=== PATIENT | female | born 1955 | race Caucasian/White ===

== ENCOUNTER 2022-04-13 21:15 | Outpatient (CLI) | payer MEDICARE, BC, SELFPAY | END 2022-04-13 21:16 | disposition home or self-care (01) | LOC: AMB 04-24 21:22 | PROVIDERS: PCP Family Medicine; Visit Provider Emergency Medicine Emergency Medical Services | DX: R07.89 Other chest pain (principal) | CPT/HCPCS: A0425; A0427 ==

== ENCOUNTER 2022-04-13 21:43 | Emergency (ER) | payer MEDICARE, BC, SELFPAY ==
[2022-04-13 21:50] VITALS: BP 112/72; PULSE 68; RESP 16; TEMP 36.4; O2SAT 99; BMI 24.1
[2022-04-13 22:05] LABS: Basophils Absolute Auto 0.04 K/uL (0.00-0.30); Basophils Percent Auto 0.5 % (0.0-3.0); Eosinophils Absolute Auto 0.07 K/uL (0.00-0.50); Eosinophils Percent Auto 0.8 % (0.0-7.0); Hematocrit 36.4 % (33.0-51.0); Lymphocytes Absolute Auto 3.36 K/uL (0.90-2.90); Lymphocytes Percent Auto 39.4 % (20-44); Mean Corpuscular HGB Conc 33 gm/dL (32-36); Mean Corpuscular Hemoglobin 31 pg (26-34); Mean Corpuscular Volume 94 fL (80-100); Monocytes Percent Auto 7.4 % (0.0-11.0); Neutrophils Absolute Auto 4.42 K/uL (1.7-7.0); Neutrophils Percent Auto 51.9 % (42.0-72.0); Platelet Count* 284 K/uL (140-440); Red Blood Count 3.88 m/uL (4.00-5.20); White Blood Count* 8.52 K/uL (4.50-11.00)
[2022-04-13 22:08] LABS: Slide Review Reflex No
--- NOTE | 2022-04-13 22:12 | ED.CHESTPAIN ---
HPI - Chest Pain General Chief Complaint: Chest Pain Stated Complaint: Chest Pain Time Seen by Provider: 04/13/22 21:55 History of Present Illness HPI narrative: This 67-year-old female comes in reporting chest pain radiating up toward her neck. This started about an hour prior to arrival. She was having a phone conversation at the time this occurred and there was no particular strenuous activity related to this. She does ambulate 3 or 4 miles every day without any symptoms. She did have some symptoms accompanying the chest pain tonight including nausea, some lightheadedness, some diaphoresis. She is treating blood pressure and cholesterol and has a family history of heart disease. Her vital signs upon arrival are normal. She did take 325 mg aspirin prior to arrival. Related Data Home Medications Medication Instructions Recorded Confirmed amlodipine 10 mg tablet 10 mg PO DAILY 04/13/22 04/13/22 aspirin 81 mg capsule 81 mg PO DAILY 04/13/22 04/13/22 cholecalciferol (vitamin D3) 25 1,000 unit PO DAILY 04/13/22 04/13/22 mcg (1,000 unit) capsule lisinopril 40 mg tablet 40 mg PO DAILY 04/13/22 04/13/22 oxcarbazepine 150 mg tablet 150 mg PO BID 04/13/22 04/13/22 rosuvastatin 5 mg tablet 5 mg PO HS 04/13/22 04/13/22 valacyclovir 500 mg tablet 500 mg PO DAILY 04/13/22 04/13/22 Allergies Allergy/AdvReac Type Severity Reaction Status Date / Time ampicillin Allergy Intermediate Rash Verified 04/13/22 21:53 Review of Systems Status of ROS Reports: 10 or more systems reviewed and unremarkable except as noted in History and below Narrative Constitutional: No fevers, no weight gain or loss. Eyes: No discharge. No vision changes. HENT: No congestion, no sore throat, no ear pain. Cardiovascular: No palpitations. Chest pain as described above. Respiratory: No shortness of breath, no wheezes, no cough. Gastrointestinal: No vomiting, no diarrhea. She did have some nausea. The pain seems to start in the upper epigastric region and then radiates up toward her chest and her neck. Genitourinary: No dysuria, no hematuria. Musculoskeletal: Normal range of motion. Skin: No rashes, no pruritis. Neurological: No dizziness, weakness, sensory change, speech change. Endo/Heme/Allergies: No bruising or bleeding. No polydipsia. Pysch: no suicidality, no anxiety, no insomnia. All other systems reviewed and are negative. [facility] Medical History (Updated 04/14/22 @ 00:26 by Dontrell Wilburn MD) Herpes labialis History of colon polyps HTN (hypertension) Seizure disorder Surgical History (Updated 04/13/22 @ 22:04 by Andre Lyn RN) No significant past surgical history Social History Smoking Status: Never smoker How often do you have a drink containing alcohol: never How often do you have six or more drinks on one occasion: Never AUDIT-C Alcohol total score: 0 Non-prescribed substance use: denies use Exam Narrative Exam Narrative: Constitutional: Well-developed, well-nourished. HEENT: Normocephalic, atraumatic. Neck: Normal range of motion. Nontender. Supple. Heart: Regular. No murmurs. Normal rate. Intact distal pulses. Lungs: Clear to auscultation. No chest discomfort. No wheezes, rhonchi, or rales. Abdomen: Normal bowel sounds. Nontender. No rebound tenderness. Genitalia: Deferred. Back: No midline tenderness. Normal range of motion. Extremities: Normal range of motion. No injury. Skin: Intact. No rash. Warm. No erythema or pallor. Neurologic: No altered sensation. No weakness. Alert and oriented. Psychiatric: No suicidality. No anxiety or depression. No insomnia. Nursing notes and vitals signs are reviewed. Const Vital Signs, click to edit/add: Vital Signs - 24 hr 04/13/22 21:50 Temperature 97.6 F Pulse Rate [Right Pulse Oximeter] 68 Respiratory Rate 16 Blood Pressure [Right Upper Arm] 112/72 Pulse Oximetry 99 Course Vital Signs Vital signs: Initial Vital Signs Temperature 97.6 F 04/13/22 21:50 Temperature Source Temporal Artery Scan 04/13/22 21:50 Pulse Rate 68 04/13/22 21:50 Pulse Rhythm 04/13/22 21:50 Respiratory Rate 16 04/13/22 21:50 Blood Pressure 112/72 04/13/22 21:50 Blood Pressure Mean 85 04/13/22 21:50 Blood Pressure Position Supine 04/13/22 21:50 Pulse Oximetry 99 04/13/22 21:50 Oxygen Delivery Method 04/13/22 21:50 Vital Signs Temperature 97.6 F 04/13/22 21:50 Pulse Rate 68 04/13/22 21:50 Respiratory Rate 16 04/13/22 21:50 Blood Pressure 112/72 04/13/22 21:50 Pulse Oximetry 99 04/13/22 21:50 Temperature 97.6 F 04/13/22 21:50 Pulse Rate 68 04/13/22 21:50 Respiratory Rate 16 04/13/22 21:50 Blood Pressure 112/72 04/13/22 21:50 Pulse Oximetry 99 04/13/22 21:50 MDM - Chest Pain MDM Narrative Medical decision making narrative: This patient comes in reporting upper epigastric abdominal pain radiating up into her chest and her neck. Initial EKG and patient monitor findings are consistently reassuring. Additionally her initial troponin is negative. A repeat troponin is pending at the end of my shift. The patient did take 325 mg of aspirin prior to arrival. She does have some episodes of nausea and discomfort here in there. She did receive an oral dose of Zofran. She also received a GI cocktail which did not bring any relief to her symptoms. It does not seem that this patient's symptoms are coming from coronary artery disease. She does walk for exercise is 3-4 miles every day without any symptoms. If repeat troponin is negative she should be okay to discharge home and is encouraged to follow-up with her primary physician. She states that she has 2 sons that are nurses involved in coronary care units and will be able to follow-up with cardiology as needed. Lab Data Labs: Lab Results 04/13/22 04/13/22 Range/Units 21:59 21:59 WBC 8.52 (4.50-11.00) K/uL RBC 3.88 L (4.00-5.20) m/uL Hgb 12.0 (12.0-16.0) gm/dL Hct 36.4 (33.0-51.0) % MCV 94 (80-100) fL MCH 31 (26-34) pg MCHC 33 (32-36) gm/dL RDW Coeff of Lavinia 13.0 (11.5-15.5) % Plt Count 284 (140-440) K/uL Neut % (Auto) 51.9 (42.0-72.0) % Lymph % (Auto) 39.4 (20-44) % [place] % (Auto) 7.4 (0.0-11.0) % Eos % (Auto) 0.8 (0.0-7.0) % Baso % (Auto) 0.5 (0.0-3.0) % Neut # (Auto) 4.42 (1.7-7.0) K/uL Lymph # (Auto) 3.36 H (0.90-2.90) K/uL [place] # (Auto) 0.60 (0.00-0.90) K/UL Eos # (Auto) 0.07 (0.00-0.50) K/uL Baso # (Auto) 0.04 (0.00-0.30) K/uL Abs Immat Gran (auto) 0.00 (0.00-0.30) K/uL Sodium 139 (135-149) mmol/L Potassium 3.1 L (3.6-5.1) mmol/L Chloride 108 (96-114) mmol/L Carbon Dioxide 26 (20-32) mmol/L BUN 22 (7-30) mg/dL Creatinine 0.7 (0.5-1.5) mg/dL Estimated Creat Clear 50.47 Estimated GFR 96 ml/min Glucose 132 H (60-115) mg/dL Calcium 8.5 (8.4-10.6) mg/dL Troponin I < 0.01 L (0.01-0.04) ng/mL ECG Data Interpretation: Normal sinus rhythm. Rate 63 beats per minute. There are no specific ST or T-wave abnormalities. Discharge Plan Discharge Clinical Impression: Atypical chest pain Condition: Stable Prescriptions: No Action amlodipine 10 mg tablet 10 mg PO DAILY 0RF cholecalciferol (vitamin D3) 25 mcg (1,000 unit) capsule 1,000 unit PO DAILY 0RF Label Comments: Take 1 capsule by mouth once daily. lisinopril 40 mg tablet 40 mg PO DAILY 0RF oxcarbazepine 150 mg tablet 150 mg PO BID 0RF Label Comments: take 1 tablet by mouth in the morning and 2 tablets by mouth in the evening rosuvastatin 5 mg tablet 5 mg PO HS 0RF valacyclovir 500 mg tablet 500 mg PO DAILY 0RF Label Comments: Take 1 tablet by mouth 2 times daily. aspirin 81 mg capsule 81 mg PO DAILY 0RF Follow Up/Referrals: Sophie Louise MD [Primary Care Provider] -
[2022-04-13 22:24] LABS: Chloride* 108 mmol/L (96-114)
[2022-04-13 22:25] LABS: Potassium* 3.1 mmol/L (3.6-5.1); Sodium* 139 mmol/L (135-149)
[2022-04-13 22:27] LABS: Creatinine* 0.7 mg/dL (0.5-1.5); Est. Creatinine Clearance* 50.47; Estimated Glomerular Filt Rate 96 ml/min
[2022-04-13 22:28] LABS: Blood Urea Nitrogen* 22 mg/dL (7-30); Calcium* 8.5 mg/dL (8.4-10.6); Carbon Dioxide* 26 mmol/L (20-32); Glucose* 132 mg/dL (60-115)
[2022-04-13 23:00] VITALS: BP 107/68; PULSE 68; RESP 16; O2SAT 98
--- NOTE | 2022-04-13 23:18 | ED.NURSE ---
pt. resting in bed. denies chest pain at this time. normal sinus on cardiac rehabilitation program director. vitals stable. w/u pending.
[2022-04-13 23:23] LABS: Troponin I* < 0.01 ng/mL (0.01-0.04)
[2022-04-13] MEDS: ONDANSETRON ODT 4 MG TAB PO (23:27)
[2022-04-13 23:30] VITALS: BP 100/68; PULSE 71; RESP 16; O2SAT 98
[2022-04-13] MEDS: GI COCKTAIL (VISC LIDO/ANTACID) 30 ML PO (23:59)
[2022-04-14] VITALS: BP 115/83; PULSE 70; RESP 16; O2SAT 98
[2022-04-14 00:30] VITALS: BP 113/77; PULSE 71; RESP 16; O2SAT 98
[2022-04-14 01:00] VITALS: BP 117/77; PULSE 76; RESP 16; O2SAT 98
[2022-04-14 01:04] LABS: Troponin I* < 0.01 ng/mL (0.01-0.04)
[2022-04-14 01:23] VITALS: BP 119/74; PULSE 69; RESP 16
== END 2022-04-14 01:24 | disposition home or self-care (01) ==
PROVIDERS: Emergency Provider Emergency Medicine Emergency Medical Services; PCP Family Medicine
DX: R07.9 Chest pain, unspecified (principal)
CPT/HCPCS: 36415; 71045; 71260; 71270; 74177; 80048; 80053; 82803; 83605; 83690; 83880; 84484; 85025; 85379; 93005; 96365; 96375; 99284; 99285; A9270; J1885; Q9967

== ENCOUNTER 2022-04-14 09:36 | Emergency (ER) | payer MEDICARE, BC, SELFPAY ==
[2022-04-14] VITALS (13 sets, daily range): BP systolic 103–122; BP diastolic 51–86; PULSE 70–93; RESP 18; TEMP 36.4; O2SAT 96–99; BMI 24.5
--- NOTE | 2022-04-14 09:50 | ED.NURSE ---
ekg done, shows SR, pt placed on heart monitor
--- NOTE | 2022-04-14 10:02 | ED_ITS ---
HPI - Chest Pain General Time Seen by Provider: 10:02 Date Seen: 04/14/22 Chief Complaint: Chest Pain Stated Complaint: sharp chest pain Time Seen by Provider: 04/14/22 09:49 Source: patient, family ( is present), RN notes reviewed and old records reviewed (Reviewed ED visit notes from last night.) Mode of arrival: ambulatory Limitations: no limitations History of Present Illness HPI narrative: Patient returns to the ER this morning with return of epigastric pain that radiates up into the chest and into her neck and both sides of her jaw. She has even feeling it into her ears. She did sleep well last night after returning home from the ER. She had negative troponins here last night in did does find sleeping last night. The pain never went completely away but was less severe. She got up this morning just was not feeling very good, cannot really specify beyond that. She went to the bathroom and then after that when she was up walking around she started having pain. There is a pleuritic component that deeper breathing does increase the pain. She has had no recent vomiting, no nausea with this. She was sick with COVID about a month ago she believes. No current fevers chills, no current cough. , no current GI symptoms with this. MD complaint: chest pain Onset (ago): day(s) Timing of current episode: episodic (The severe pain seems to be episodic, last severe episode prior to ED visit last night) and constant (Underlying constant mild pain) Prior episodes: No Onset: during rest and during exertion Pain location: substernal and epigastric Pain radiation: neck and jaw/teeth Severity: severe Quality: sharp Relieving factors: nothing Exacerbating factors: exertion (Seem to worsen with walking around this morning) Context: recent illness (Had COVID about a month ago) Related Data On Oral Contraceptives: No Home Medications Medication Instructions Recorded Confirmed amlodipine 10 mg tablet 10 mg PO DAILY 04/13/22 04/13/22 aspirin 81 mg capsule 81 mg PO DAILY 04/13/22 04/13/22 cholecalciferol (vitamin D3) 25 1,000 unit PO DAILY 04/13/22 04/13/22 mcg (1,000 unit) capsule lisinopril 40 mg tablet 40 mg PO DAILY 04/13/22 04/13/22 oxcarbazepine 150 mg tablet 150 mg PO BID 04/13/22 04/13/22 rosuvastatin 5 mg tablet 5 mg PO HS 04/13/22 04/13/22 valacyclovir 500 mg tablet 500 mg PO DAILY 04/13/22 04/13/22 Allergies Allergy/AdvReac Type Severity Reaction Status Date / Time ampicillin Allergy Intermediate Rash Verified 04/13/22 21:53 Review of Systems Status of ROS Reports: 10 or more systems reviewed and unremarkable except as noted in History and below [facility] Medical History (Updated 04/14/22 @ 00:26 by Dontrell Wilburn MD) Herpes labialis History of colon polyps HTN (hypertension) Seizure disorder Surgical History (Updated 04/13/22 @ 22:04 by Andre Lyn RN) No significant past surgical history Social History Smoking Status: Never smoker How often do you have a drink containing alcohol: never How often do you have six or more drinks on one occasion: Never AUDIT-C Alcohol total score: 0 Non-prescribed substance use: denies use Exam Const Vital Signs, click to edit/add: Vital Signs - 24 hr 04/14/22 09:44 04/14/22 10:30 04/14/22 11:00 Temperature 97.5 F L Pulse Rate [Left Pulse Oximeter] 77 77 75 Respiratory Rate 18 18 18 Blood Pressure [Left Upper Arm] 118/62 112/53 L 107/57 L Pulse Oximetry 97 98 96 04/14/22 11:30 04/14/22 12:00 04/14/22 12:30 Temperature Pulse Rate [Left Pulse Oximeter] 79 73 73 Respiratory Rate 18 18 18 Blood Pressure [Left Upper Arm] 104/86 104/55 L 106/61 Pulse Oximetry 96 97 97 04/14/22 13:00 04/14/22 13:30 04/14/22 14:00 Temperature Pulse Rate [Left Pulse Oximeter] 70 71 93 Respiratory Rate 18 18 18 Blood Pressure [Left Upper Arm] 109/56 L 103/51 L 115/65 Pulse Oximetry 96 99 98 04/14/22 14:24 Temperature Pulse Rate [Left Pulse Oximeter] 93 Respiratory Rate 18 Blood Pressure [Left Upper Arm] 115/65 Pulse Oximetry 98 Documenting provider has reviewed patient's vital signs: yes Common normals: no apparent distress, oriented x3, no limitations, healthy appearing and alert General appearance: cooperative and other (Seems mildly uncomfortable at times) Orientation/consciousness: Yes awake HENMT Common normals: normocephalic, head/scalp atraumatic, hearing grossly normal bilaterally, external ears normal, TM's normal bilaterally, external nose normal, moist oral mucous membranes, oropharynx normal and dentition normal Head and scalp: normocephalic and atraumatic Nose: external nose normal External ear: external ears normal Tympanic membrane: TM's normal bilaterally Eye Common normals: PERRL, EOMs intact bilaterally, conjunctivae normal and no scleral icterus Conjunctiva: conjunctiva(e) normal Pupil: PERRL Neck & C-Spine Common normals: full ROM, no lymphadenopathy, supple, no meningeal signs, no JVD and thyroid normal Thyroid: thyroid normal Chest Common normals: inspection of chest normal Other: Feels some increased pain when I palpate the costochondral junctions and the lower sternum, epigastric area Resp Common normals: normal respiratory effort, no retractions, no use of accessory muscles and clear to auscultation bilaterally Effort & inspection: able to speak in complete sentences Auscultation: clear to auscultation bilaterally Cardio Common normals: no JVD, regular rate, regular rhythm, S1 normal heart sound, S2 normal heart sound, no gallops, no clicks and no murmurs Rate: regular rate Rhythm: regular rhythm Heart sounds: S1 normal and S2 normal GI Common normals: Normal to inspection, nondistended, normoactive bowel sounds present, soft to palpation, non-tender (With exception of the epigastric area which causes increased chest symptoms), no hepatosplenomegaly and no masses Palpation: soft and no hepatosplenomegaly Extremity Common normals: normal to inspection, full ROM, normal capillary refill, no joint enlargement, no clubbing, cyanosis or edema, no calf tenderness and no pedal edema Neuro Common normals: oriented x3 Sensorium/orientation: awake and alert Meningeal signs: no meningeal signs Skin Common normals: no rashes or lesions noted, no wounds and skin turgor normal General skin exam: no rashes or lesions noted and turgor normal Course Course Hospital Course: We will reconsider etiologies including thromboembolic/dissection. Will relook at her cardiac enzymes. This certainly seems pleuritic. They understand we may need to do CT imaging. Will do full complement of labs CT, have her on cardiac monitoring and pulse oximetry. Need to look back and see which she was given yesterday and decide on pain management for her. Review of her visit last night reveals that she receives Zofran and a GI cocktail. Will attempt Toradol IV and see if that helps alleviate her symptoms. Reevaluation(s) Reevaluation #1: Reviewed with patient that her EKG and troponin are looking normal, no evidence that these symptoms are cardiac. Her D-dimer unfortunately is quite elevated and do think we need to proceed with CT imaging of the chest with PE protocol. With her blood pressure being normal, it makes dissection much less likely. The Toradol has helped werner some of her symptoms, thus certainly pleurisy could be playing a component here. Time: 11:12 Reevaluation #2: Received a phone call from the radiologist at 1:58 p.m.. There was a ascending thoracic aorta aneurysm per the radiologist. She recommended transfer to an advanced institution and did not recommend repeating in the study for dissection/aneurysm. I a spoke with the patient and her , they preferred [facility] for [place]. I did talk to Kim MEEK in the transfer center at 2:03 p.m.. She is going to look at all of our information that we are faxing her, await our images that we are transferring to their facility and contact us back. At this time patient is hemodynamically stable with a blood pressure 115/65, pulse of 90, 97% on room air. Her pain is not severe. Her blood pressure is low enough that I a.m. holding off starting any medications and tell I talked to a specialist somewhere. Her pulse may have room to be brought down a bit but there is not significant Gunnar her blood pressure. She has not become hypotensive. Review of her blood pressures from last night showed that they were similar. Time: 14:00 Reevaluation #3: Have spoken with Dr. Stewart from [facility] and they will be accepting this patient. He did want an esmolol drip started with titration of the pulse to be below 70 and systolic blood pressure below 110. Patient right now has a systolic blood pressure 113, pulse in the 80s. Pharmacy is working on esmolol drip. The plan is for her to transfer via helicopter to [place] where she will undergo surgery. We will be getting a COVID test on her for them. Time: 15:56 Vital Signs Vital signs: Initial Vital Signs Temperature 97.5 F L 04/14/22 09:44 Temperature Source Temporal Artery Scan 04/14/22 09:44 Pulse Rate 77 04/14/22 09:44 Respiratory Rate 18 04/14/22 09:44 Blood Pressure 118/62 04/14/22 09:44 Blood Pressure Mean 80 04/14/22 09:44 Pulse Oximetry 97 04/14/22 09:44 Oxygen Delivery Method 04/14/22 09:44 Vital Signs Temperature 97.5 F L 04/14/22 09:44 Pulse Rate 77 04/14/22 09:44 Respiratory Rate 18 04/14/22 09:44 Blood Pressure 118/62 04/14/22 09:44 Pulse Oximetry 97 04/14/22 09:44 Temperature 97.5 F L 04/14/22 09:44 Pulse Rate 93 04/14/22 14:24 Respiratory Rate 18 04/14/22 14:24 Blood Pressure 115/65 04/14/22 14:24 Pulse Oximetry 98 04/14/22 14:24 MDM - Chest Pain Lab Data Attestation: I reviewed the patient's lab results. Labs: Lab Results 04/14/22 04/14/22 04/14/22 Range/Units 10:25 10:25 10:25 WBC 14.76 H (4.50-11.00) K/uL RBC 4.02 (4.00-5.20) m/uL Hgb 12.5 (12.0-16.0) gm/dL Hct 38.2 (33.0-51.0) % MCV 95 (80-100) fL MCH 31 (26-34) pg MCHC 33 (32-36) gm/dL RDW Coeff of Lavinia 13.3 (11.5-15.5) % Plt Count 280 (140-440) K/uL Neut % (Auto) 78.2 H (42.0-72.0) % Lymph % (Auto) 13.4 L (20-44) % Dent % (Auto) 8.0 (0.0-11.0) % Eos % (Auto) 0.0 (0.0-7.0) % Baso % (Auto) 0.1 (0.0-3.0) % Neut # (Auto) 11.50 H (1.7-7.0) K/uL Lymph # (Auto) 2.00 (0.90-2.90) K/uL Dent # (Auto) 1.20 H (0.00-0.90) K/UL Eos # (Auto) 0.00 (0.00-0.50) K/uL Baso # (Auto) 0.00 (0.00-0.30) K/uL Abs Immat Gran (auto) 0.05 (0.00-0.30) K/uL D-Dimer Quant (PE/DVT) 2.04 H (0.00-0.50) ug/ml VBG pH (7.32-7.43) VBG pCO2 (40-50) mmHG VBG pO2 (25-47) mmHG VBG HCO3 (21-28) mmol/L Sodium 142 (135-149) mmol/L Potassium 3.9 (3.6-5.1) mmol/L Chloride 107 (96-114) mmol/L Carbon Dioxide 28 (20-32) mmol/L BUN 26 (7-30) mg/dL Creatinine 0.7 (0.5-1.5) mg/dL Estimated Creat Clear 48.43 Estimated GFR 96 ml/min Glucose 142 H (60-115) mg/dL Lactate (0.5-1.9) mmol/L Calcium 9.3 (8.4-10.6) mg/dL Total Bilirubin 0.3 (0.1-1.5) mg/dL AST 33 (12-35) U/L ALT 31 (4-35) U/L Alkaline Phosphatase 57 (40-150) U/L Troponin I < 0.01 L (0.01-0.04) ng/mL NT-Pro-B Natriuret Pep 168 H (0-125) PG/mL Total Protein 6.8 (6.0-8.3) g/dL Albumin 4.3 (3.3-5.0) g/dL Lipase 72 (23-300) U/L 04/14/22 Range/Units 10:25 WBC (4.50-11.00) K/uL RBC (4.00-5.20) m/uL Hgb (12.0-16.0) gm/dL Hct (33.0-51.0) % MCV (80-100) fL MCH (26-34) pg MCHC (32-36) gm/dL RDW Coeff of Lavinia (11.5-15.5) % Plt Count (140-440) K/uL Neut % (Auto) (42.0-72.0) % Lymph % (Auto) (20-44) % Dent % (Auto) (0.0-11.0) % Eos % (Auto) (0.0-7.0) % Baso % (Auto) (0.0-3.0) % Neut # (Auto) (1.7-7.0) K/uL Lymph # (Auto) (0.90-2.90) K/uL Dent # (Auto) (0.00-0.90) K/UL Eos # (Auto) (0.00-0.50) K/uL Baso # (Auto) (0.00-0.30) K/uL Abs Immat Gran (auto) (0.00-0.30) K/uL D-Dimer Quant (PE/DVT) (0.00-0.50) ug/ml VBG pH 7.368 (7.32-7.43) VBG pCO2 49 (40-50) mmHG VBG pO2 35.7 (25-47) mmHG VBG HCO3 28 (21-28) mmol/L Sodium (135-149) mmol/L Potassium (3.6-5.1) mmol/L Chloride (96-114) mmol/L Carbon Dioxide (20-32) mmol/L BUN (7-30) mg/dL Creatinine (0.5-1.5) mg/dL Estimated Creat Clear Estimated GFR ml/min Glucose (60-115) mg/dL Lactate 1.7 (0.5-1.9) mmol/L Calcium (8.4-10.6) mg/dL Total Bilirubin (0.1-1.5) mg/dL AST (12-35) U/L ALT (4-35) U/L Alkaline Phosphatase (40-150) U/L Troponin I (0.01-0.04) ng/mL NT-Pro-B Natriuret Pep (0-125) PG/mL Total Protein (6.0-8.3) g/dL Albumin (3.3-5.0) g/dL Lipase (23-300) U/L Imaging Data Chest x-ray: Attestation: I have reviewed the pertinent imaging results. Radiologist's impression: Patient: [facility] [place] Facility:?[facility] Patient ID:?[id number] Site Patient ID:?[id number]. Site :?[id number] Study:?XRay Chest Portable 1 View-04/14/2022 11:04:46 AM Ordering Physician:?Luis F Freire Final Report: INDICATION: Chest pain TECHNIQUE: Chest 1 view COMPARISON: None FINDINGS: Cardiovascular and mediastinum: Cardiac silhouette is enlarged. There is tortuosity of the great vessels. Lungs and pleural spaces: Lungs are clear. No sign of infiltrate or mass. No sign of pleural effusion. No pneumothorax. Bones and soft tissues: Degenerative changes. IMPRESSION: No acute findings. Dictated by Willard Vegas MD @ 04/14/2022 11:29:[address] scan - chest: Attestation: I have reviewed the pertinent imaging results. Radiologist's impression: Patient: [facility] Facility:?[facility] Patient ID:?[id number] Site Patient ID:?[id number]. Site :?[id number] Study:?CT Chest Angio 95cc [id number] PE protocol-04/14/2022 11:57:35 AM Ordering Physician:?Luis F Freire Final Report: INDICATION: Sharp chest pain. COMPARISON: Chest radiograph 04/14/2022. TECHNIQUE: CT of the chest with 95 cc of Isovue 370 IV contrast. Coronal and sagittal reconstructions. 3D post processing was performed. FINDINGS: Heart size upper limits of normal. The ascending thoracic aorta is dilated measuring 4.7 x 4.8 cm AP by TR. Contrast bolus timing is not optimal for evaluation of the aorta, however there is a clear aortic dissection beginning at the aortic root extending through the ascending thoracic aorta. The remainder of the aorta and great vessels are not well opacified. There is high-density fluid in the mediastinum surrounding the aorta suspicious for rupture. Normal caliber central pulmonary arteries. Negative for acute pulmonary embolism. Tiny pericardial effusion. No thoracic lymphadenopathy. The thyroid gland is not well seen. No focal consolidation, pleural effusion, or pneumothorax. Minimal biapical pleural scarring and bibasilar atelectasis. Calcified granuloma in the lingula. No other pulmonary nodules identified. No central endobronchial lesion or bronchial wall thickening. The visualized upper abdomen is unremarkable. The bones are within normal limits. IMPRESSION: 1. Moises type A aortic dissection beginning at the aortic root extending through the ascending thoracic aorta. The remainder of the aorta and great vessels are not well opacified which limits evaluation of the extent of the dissection. High-density fluid in the mediastinum suspicious for rupture. Recommend urgent vascular/surgical consult. 2. Negative for acute pulmonary embolism. The lungs are clear. 3. Findings discussed with Mouna Kerns at 2:00 p.m. on 04/14/2022. Please note that all CT scans at this facility use dose modulation, iterative reconstruction, and/or weight-based dosing when appropriate to reduce radiation dose to as low as reasonably achievable. Dictated by Katherine Ferrer MD @ 04/14/2022 2:07:06 PM (Electronic Signature) ECG Data Attestation: I personally reviewed and interpreted this ECG as follows: (Sinus rhythm, 77 beats per minute. No acute pathology on this EKG.) ECG interpretation date: 04/14/22 ECG interpretation time: 10:11 Prior ECG tracings: available for review Critical Care Time Critical Care Time Critical Care Time: No Discharge Plan Discharge Prescriptions: No Action amlodipine 10 mg tablet 10 mg PO DAILY 0RF cholecalciferol (vitamin D3) 25 mcg (1,000 unit) capsule 1,000 unit PO DAILY 0RF Label Comments: Take 1 capsule by mouth once daily. lisinopril 40 mg tablet 40 mg PO DAILY 0RF oxcarbazepine 150 mg tablet 150 mg PO BID 0RF Label Comments: take 1 tablet by mouth in the morning and 2 tablets by mouth in the evening rosuvastatin 5 mg tablet 5 mg PO HS 0RF valacyclovir 500 mg tablet 500 mg PO DAILY 0RF Label Comments: Take 1 tablet by mouth 2 times daily. aspirin 81 mg capsule 81 mg PO DAILY 0RF Follow Up/Referrals: Sophie Louise MD [Primary Care Provider] -
--- NOTE | 2022-04-14 10:13 | CRLHL7_ITS ---
For Patients: As a result of the Cures Act, medical imaging exams and procedure reports are released immediately into your electronic medical record. You may view this report before your referring provider. If you have questions, please contact your health care provider. INDICATION: Chest pain TECHNIQUE: Chest 1 view COMPARISON: None FINDINGS: Cardiovascular and mediastinum: Cardiac silhouette is enlarged. There is tortuosity of the great vessels. Lungs and pleural spaces: Lungs are clear. No sign of infiltrate or mass. No sign of pleural effusion. No pneumothorax. Bones and soft tissues: Degenerative changes. IMPRESSION: No acute findings. Dictated by Willard Vegas MD @ 04/14/2022 11:29:11 AM (Electronically Signed)
[2022-04-14 10:29] LABS: HCO3 VBG 28 mmol/L (21-28); Lactate* 1.7 mmol/L (0.5-1.9); PCO2 VBG 49 mmHG (40-50); PO2 VBG 35.7 mmHG (25-47); pH VBG 7.368 (7.32-7.43)
[2022-04-14] MEDS: KETOROLAC 15 MG/ML inj IVP (10:44)
[2022-04-14 10:46] LABS: Albumin* 4.3 g/dL (3.3-5.0); Chloride* 107 mmol/L (96-114)
[2022-04-14 10:47] LABS: Potassium* 3.9 mmol/L (3.6-5.1); Sodium* 142 mmol/L (135-149)
[2022-04-14 10:49] LABS: Bilirubin Total* 0.3 mg/dL (0.1-1.5); Creatinine* 0.7 mg/dL (0.5-1.5); Est. Creatinine Clearance* 48.43; Estimated Glomerular Filt Rate 96 ml/min
[2022-04-14 10:50] LABS: Alanine Aminotransferase* 31 U/L (4-35); Alkaline Phosphatase* 57 U/L (40-150); Aspartate Amino Transferase* 33 U/L (12-35); Blood Urea Nitrogen* 26 mg/dL (7-30); Calcium* 9.3 mg/dL (8.4-10.6); Carbon Dioxide* 28 mmol/L (20-32); Glucose* 142 mg/dL (60-115); Lipase* 72 U/L (23-300); Total Protein* 6.8 g/dL (6.0-8.3)
[2022-04-14 10:51] LABS: D Dimer Quantitative* 2.04 ug/ml (0.00-0.50)
[2022-04-14 10:54] LABS: Basophils Percent Auto 0.1 % (0.0-3.0); Hematocrit 38.2 % (33.0-51.0); Hemoglobin* 12.5 gm/dL (12.0-16.0); Immature Granulocytes Abs Auto 0.05 K/uL (0.00-0.30); Lymphocytes Percent Auto 13.4 % (20-44); Mean Corpuscular HGB Conc 33 gm/dL (32-36); Mean Corpuscular Hemoglobin 31 pg (26-34); Mean Corpuscular Volume 95 fL (80-100); Neutrophils Percent Auto 78.2 % (42.0-72.0); Platelet Count* 280 K/uL (140-440); RDW Coefficient of Variation % 13.3 % (11.5-15.5); Red Blood Count 4.02 m/uL (4.00-5.20); White Blood Count* 14.76 K/uL (4.50-11.00)
[2022-04-14 10:58] LABS: NT Pro B Type NatriureticPept* 168 PG/mL (0-125)
[2022-04-14 11:02] LABS: Troponin I* < 0.01 ng/mL (0.01-0.04)
[2022-04-14 11:03] LABS: Slide Review Reflex No
--- NOTE | 2022-04-14 11:12 | CRLHL7_ITS ---
For Patients: As a result of the Century Cures Act, medical imaging exams and procedure reports are released immediately into your electronic medical record. You may view this report before your referring provider. If you have questions, please contact your health care provider. INDICATION: Sharp chest pain. COMPARISON: Chest radiograph 04/14/2022. TECHNIQUE: CT of the chest with 95 cc of Isovue 370 IV contrast. Coronal and sagittal reconstructions. 3D post processing was performed. FINDINGS: Heart size upper limits of normal. The ascending thoracic aorta is dilated measuring 4.7 x 4.8 cm AP by TR. Contrast bolus timing is not optimal for evaluation of the aorta, however there is a clear aortic dissection beginning at the aortic root extending through the ascending thoracic aorta. The remainder of the aorta and great vessels are not well opacified. There is high-density fluid in the mediastinum surrounding the aorta suspicious for rupture. Normal caliber central pulmonary arteries. Negative for acute pulmonary embolism. Tiny pericardial effusion. No thoracic lymphadenopathy. The thyroid gland is not well seen. No focal consolidation, pleural effusion, or pneumothorax. Minimal biapical pleural scarring and bibasilar atelectasis. Calcified granuloma in the lingula. No other pulmonary nodules identified. No central endobronchial lesion or bronchial wall thickening. The visualized upper abdomen is unremarkable. The bones are within normal limits. IMPRESSION: 1. [place] type A aortic dissection beginning at the aortic root extending through the ascending thoracic aorta. The remainder of the aorta and great vessels are not well opacified which limits evaluation of the extent of the dissection. High-density fluid in the mediastinum suspicious for rupture. Recommend urgent vascular/surgical consult. 2. Negative for acute pulmonary embolism. The lungs are clear. 3. Findings discussed with Mouna Kerns at 2:00 p.m. on 04/14/2022. Please note that all CT scans at this facility use dose modulation, iterative reconstruction, and/or weight-based dosing when appropriate to reduce radiation dose to as low as reasonably achievable. Dictated by Katherine Ferrer MD @ 04/14/2022 2:07:06 PM (Electronically Signed)
--- NOTE | 2022-04-14 16:07 | CRLHL7_ITS ---
For Patients: As a result of the 21st Century Cures Act, medical imaging exams and procedure reports are released immediately into your electronic medical record. You may view this report before your referring provider. If you have questions, please contact your health care provider. INDICATION: Chest pain. TECHNIQUE: CT chest without contrast and CT chest, abdomen and pelvis acquired with 100 cc Omnipaque 350 IV contrast, dissection protocol. COMPARISON: CT angiogram of the chest PE protocol from same day.. FINDINGS: CHEST: Cardiovascular structures: The unenhanced images demonstrate high-density fluid within the mediastinum and surrounding the anterior margin of the aorta most consistent with hemorrhage. On the angiographic images, dissection flap is identified originating from the aortic root extending into the ascending aorta at. Cardiac motion artifact mildly limits evaluation. No definite site of leak or rupture is identified, however given high-density fluid within the mediastinum there is most likely an occult leak or rupture. No extension of the dissection flap into the arch vessels is identified. No dissection flap extension into the descending thoracic aorta or abdominal aorta or beyond. Heart size is normal. Mediastinum and margie: Again, there is high-density material within the mediastinum most suspicious for hemorrhage from leak or rupture, similar to the recent PE protocol CT of the chest. Lungs and pleura: Mild bibasilar atelectasis. Chest wall and axilla: No mass or adenopathy. Bones: Unremarkable for age. ABDOMEN AND PELVIS: Liver: Unremarkable. Gallbladder and bile ducts: Mild hyperdensity in the dependent portion likely related to sludge. No intra extrahepatic biliary ductal dilatation. Pancreas: Unremarkable. Spleen: Unremarkable. Adrenal glands: Unremarkable. Kidneys: 62 x 55 millimeter simple cyst at the inferior pole of the left kidney. Peripherally calcified cyst at the interpolar region of the right kidney measuring 2.0 centimeters. GI tract: Unremarkable. Vascular structures: Abdominal aorta is normal in caliber without evidence of dissection. Mesenteric arteries are patent. Mild scattered calcific and soft plaque atherosclerosis throughout the abdominal aorta. Lymph nodes: Unremarkable. Miscellaneous: Unremarkable. No free air or significant free fluid. Pelvic Organs: Retroverted uterus. Bones: Unremarkable for age. IMPRESSION: 1. [place] type a aortic dissection from the aortic root through the ascending thoracic aorta. No extension of the dissection flap into the arch vessels or into the descending thoracic aorta or abdominal aorta. 2. Hyperattenuation in the mediastinum most suspicious for leak or rupture. However, no neelam leak or rupture was identified on the postcontrast images. Findings discussed with Dr. Lebron at 2:50 pm on 04/14/[address] Cunha. Please note that all CT scans at this facility use dose modulation, iterative reconstruction, and/or weight-based dosing when appropriate to reduce radiation dose to as low as reasonably achievable. Dictated by Ketty Cunha MD @ 04/14/2022 5:00:05 PM (Electronically Signed)
[2022-04-14] MEDS: ESMOLOL HCL IVPB (16:25)
[2022-04-14] MEDS: DEXTROSE 5% IVPB (16:25)
--- NOTE | 2022-04-14 16:41 | ED.NURSE ---
pt left before obtaining covid swab
== END 2022-04-14 16:30 | disposition home or self-care (01) ==
PROVIDERS: Emergency Provider Family Medicine; PCP Family Medicine
DX: I71.2 Thoracic aortic aneurysm, without rupture (principal)
CPT/HCPCS: 36415; 71045; 71260; 71270; 74177; 80053; 82803; 83605; 83690; 83880; 84484; 85025; 85379; 87635; 93005; 96365; 96375; 99284; 99285; J1885; Q9967

== ENCOUNTER 2022-11-09 22:14 | Emergency (ER) | payer MEDICARE, BC, SELFPAY ==
[2022-11-09] VITALS (8 sets, daily range): BP systolic 127–202; BP diastolic 61–107; PULSE 56–74; RESP 16–18; TEMP 36.9; O2SAT 92–99; BMI 25.7
[2022-11-09] MEDS: diazePAM 5 MG/ML inj IV (23:12)
[2022-11-09] MEDS: 0.9 % SODIUM CHLORIDE 1000 ml 1,000 ML IV (23:12)
--- NOTE | 2022-11-09 23:14 | ED.DIZZY ---
HPI - Dizziness General Chief Complaint: Dizziness/Vertigo Stated Complaint: Nausea and dizziness when laying down Time Seen by Provider: 11/09/22 22:36 History of Present Illness HPI Narrative: 67-year-old woman presenting to the emergency department accompanied by with concern of dizziness. This has come and gone. May be exacerbated by small movements it seems a little unclear. Concurrently feeling well semi recumbent in still. Around bedtime had been feeling of the need to have a bowel movement accompanied with nausea. Accomplish this bowel movement and returned to the bed and was feeling more dizzy when she went to lay down. Did not seem to change when she closed her eyes either. Begin hiccuping 4 times which her takes is a sign that she might be about to throw up. He measured her blood pressure which was notably up. They decided to come to the ER. No chest pain or shortness of breath. Does have a history of aortic dissection last year requiring surgical intervention. No headaches. Lately has been having some postnasal drip which she thinks might be related to some sinus ?issues?. Facial pain or pressure. No fever. Unsure what sort of cervical vascular evaluation has been done. Had been rolling around trying to get settled in bed when the symptoms suddenly hit. Related Data Home Medications Medication Instructions Recorded Confirmed aspirin 81 mg capsule 81 mg PO DAILY 04/13/22 11/09/22 cholecalciferol (vitamin D3) 25 1,000 unit PO DAILY 04/13/22 11/09/22 mcg (1,000 unit) capsule oxcarbazepine 150 mg tablet 150 mg PO BID 04/13/22 11/09/22 rosuvastatin 5 mg tablet 5 mg PO HS 04/13/22 11/09/22 valacyclovir 500 mg tablet 500 mg PO DAILY 04/13/22 11/09/22 lisinopril 5 mg tablet 2.5 mg PO DAILY 11/09/22 11/09/22 metoprolol tartrate 50 mg tablet 50 mg PO Q12H 11/09/22 11/09/22 Previous Rx's Medication Instructions Recorded diazepam 5 mg tablet (Valium) 5 mg PO BID PRN dizziness/nausea 11/10/22 #5 tabs meclizine 25 mg tablet 25 mg PO TID PRN #15 tabs 11/10/22 Allergies Allergy/AdvReac Type Severity Reaction Status Date / Time ampicillin Allergy Intermediate Rash Verified 11/09/22 22:27 Review of Systems Status of ROS: Reports: 10 or more systems reviewed and unremarkable except as noted in History and below PFSH [facility] Medical History (Updated 11/10/22 @ 01:12 by Andre Lyn RN) Aortic aneurysm and dissection Herpes labialis History of colon polyps HTN (hypertension) Pseudoaneurysm Seizure disorder Surgical History (Updated 11/10/22 @ 01:12 by Andre Lyn RN) 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 Mildly anxious. Skin is warm and dry. Extremities are without edema. She is well-perfused peripherally. Cranial nerves 2-12 are intact. No facial pressure swelling or erythema. TMs are clear. Oropharynx WNL. Lungs are clear heart with a regular rate and rhythm. No murmur identified. Abdomen is soft is nontender. Chest with large midline surgical scar. Further neuro, speaking fluidly and moving easily. There is no nystagmus. Lying down flat and then elevating back to seated position does seem to reproduce her dizziness. Rotational movement does not. Head impulse testing is mildly positive both directions; more so to the right I think. Test of skew done later was negative. Const: Vital Signs, click to edit/add: Vital Signs - 24 hr 11/09/22 22:22 11/09/22 22:45 11/09/22 22:49 Temperature 98.4 F Pulse Rate 56 L Pulse Rate [Right Pulse Oximeter] 74 Pulse Rate [orthos tatic lying Right Pulse Oximeter] 61 Pulse Rate [orthos tatic sitting Left Pulse Oximeter] 62 Pulse Rate [orthos tatic standing Lef t Pulse Oximeter] 62 Respiratory Rate 18 16 Blood Pressure 187/95 H Blood Pressure [Le ft Upper Arm] 195/105 H Blood Pressure [or thostatic lying Ri ght Arm] 188/92 H Blood Pressure [or thostatic sitting Right Arm] 202/104 H Blood Pressure [or thostatic standing Right Arm] 191/107 H Pulse Oximetry 99 97 Oxygen Delivery Me thod Room Air 11/09/22 23:02 11/09/22 23:20 11/09/22 22:50 Temperature Pulse Rate 60 65 Pulse Rate [Right Pulse Oximeter] Pulse Rate [orthos tatic lying Right Pulse Oximeter] Pulse Rate [orthos tatic sitting Left Pulse Oximeter] Pulse Rate [orthos tatic standing Lef t Pulse Oximeter] Respiratory Rate 16 16 Blood Pressure 188/99 H 182/101 H Blood Pressure [Le ft Upper Arm] Blood Pressure [or thostatic lying Ri ght Arm] Blood Pressure [or thostatic sitting Right Arm] Blood Pressure [or thostatic standing Right Arm] Pulse Oximetry 98 94 98 Oxygen Delivery Me thod 11/09/22 23:33 11/09/22 23:47 11/10/22 00:02 Temperature Pulse Rate 59 L 58 L 61 Pulse Rate [Right Pulse Oximeter] Pulse Rate [orthos tatic lying Right Pulse Oximeter] Pulse Rate [orthos tatic sitting Left Pulse Oximeter] Pulse Rate [orthos tatic standing Lef t Pulse Oximeter] Respiratory Rate 16 16 16 Blood Pressure 139/70 127/61 144/80 H Blood Pressure [Le ft Upper Arm] Blood Pressure [or thostatic lying Ri ght Arm] Blood Pressure [or thostatic sitting Right Arm] Blood Pressure [or thostatic standing Right Arm] Pulse Oximetry 92 92 95 Oxygen Delivery Me thod 11/10/22 00:17 11/10/22 00:32 11/10/22 00:58 Temperature 98.4 F Pulse Rate 63 60 Pulse Rate [Right Pulse Oximeter] 74 Pulse Rate [orthos tatic lying Right Pulse Oximeter] Pulse Rate [orthos tatic sitting Left Pulse Oximeter] Pulse Rate [orthos tatic standing Lef t Pulse Oximeter] Respiratory Rate 16 16 16 Blood Pressure 162/86 H 165/65 H Blood Pressure [Le ft Upper Arm] 195/105 H Blood Pressure [or thostatic lying Ri ght Arm] Blood Pressure [or thostatic sitting Right Arm] Blood Pressure [or thostatic standing Right Arm] Pulse Oximetry 96 95 Oxygen Delivery Me thod Course Vital Signs Vital signs: Initial Vital Signs Temperature 98.4 F 11/09/22 22:22 Temperature Source Temporal Artery Scan 02/15/23 22:22 Pulse Rate 74 11/09/22 22:22 Respiratory Rate 18 11/09/22 22:22 Blood Pressure 195/105 H 11/09/22 22:22 Blood Pressure Mean 135 11/09/22 22:22 Blood Pressure Position Sitting 11/09/22 22:22 Pulse Oximetry 99 11/09/22 22:22 Oxygen Delivery Method 11/09/22 22:22 Vital Signs Temperature 98.4 F 11/09/22 22:22 Pulse Rate 74 11/09/22 22:22 Respiratory Rate 18 11/09/22 22:22 Blood Pressure 195/105 H 11/09/22 22:22 Pulse Oximetry 99 11/09/22 22:22 Oxygen Delivery Method 11/09/22 22:22 Temperature 98.4 F 11/10/22 00:58 Pulse Rate 74 11/10/22 00:58 Respiratory Rate 16 11/10/22 00:58 Blood Pressure 195/105 H 11/10/22 00:58 Pulse Oximetry 95 11/10/22 00:32 Oxygen Delivery Method 11/09/22 22:22 MDM - Dizziness MDM Narrative Medical decision making narrative: This sense of dizziness is reproducible with position changes. Differential course does include stroke or peripheral vestibular issue. Arrhythmia. Ischemic cardiovascular event. I suppose sinus problems could precipitate this as well. EKG reviewed by me shows normal sinus at a rate of 60 Will give fluids and Valium. Labs pending On reassessment is tired but markedly improved in symptoms. Not able to reproduce much in the way of dizziness anymore. I do suspect more of a peripheral issue here. Blood pressure improved though still elevated. did make mention there been some stressful news just prior to bedtime. Understandably given recent events they are cognizant of elevated blood pressures. We discussed potentially doing further imaging; opted initially to see how things go over the next 24 hours and on. Unable to locate vascular study from recent evaluation noting only cardiac MR from [place]. Medical Records Attestation: I reviewed the patient's medical records. Lab Data Attestation: I reviewed the patient's lab results. (Overall reassuring.) Labs: Lab Results 11/09/22 11/09/22 11/09/22 Range/Units 22:50 22:50 22:50 WBC 6.98 (4.50-11.00) K/uL RBC 4.51 (4.00-5.20) m/uL Hgb 14.0 (12.0-16.0) gm/dL Hct 41.9 (33.0-51.0) % MCV 93 (80-100) fL MCH 31 (26-34) pg MCHC 33 (32-36) gm/dL RDW Coeff of Lavinia 12.9 (11.5-15.5) % Plt Count 309 (140-440) K/uL Neut % (Auto) 49.2 (42.0-72.0) % Lymph % (Auto) 36.8 (20-44) % Gonzales % (Auto) 11.0 (0.0-11.0) % Eos % (Auto) 1.9 (0.0-7.0) % Baso % (Auto) 0.4 (0.0-3.0) % Neut # (Auto) 3.43 (1.7-7.0) K/uL Lymph # (Auto) 2.57 (0.90-2.90) K/uL Gonzales # (Auto) 0.80 (0.00-0.90) K/UL Eos # (Auto) 0.13 (0.00-0.50) K/uL Baso # (Auto) 0.03 (0.00-0.30) K/uL D-Dimer Quant (PE/DVT) 0.37 (0.00-0.50) ug/ml Sodium 139 (135-149) mmol/L Potassium 3.4 L (3.6-5.1) mmol/L Chloride 106 (96-114) mmol/L Carbon Dioxide 27 (20-32) mmol/L BUN 18 (7-30) mg/dL Creatinine 0.6 (0.5-1.5) mg/dL Estimated Creat Clear 48.43 Estimated GFR 100 ml/min Glucose 111 (60-115) mg/dL Calcium 9.5 (8.4-10.6) mg/dL Total Bilirubin (0.1-1.5) mg/dL Direct Bilirubin (0.0-0.5) mg/dL AST (12-35) U/L ALT (4-35) U/L Alkaline Phosphatase (40-150) U/L Troponin I (0.01-0.04) ng/mL C-Reactive Protein < 0.5 L (0.5-1.0) mg/dL NT-Pro-B Natriuret Pep pg/mL Total Protein (6.0-8.3) g/dL Albumin (3.3-5.0) g/dL Ethyl Alcohol (0.01-0.03) % POC Troponin I (0.01-0.04) ng/ml 11/09/22 11/09/22 Range/Units 22:50 22:50 WBC (4.50-11.00) K/uL RBC (4.00-5.20) m/uL Hgb (12.0-16.0) gm/dL Hct (33.0-51.0) % MCV (80-100) fL MCH (26-34) pg MCHC (32-36) gm/dL RDW Coeff of Lavinia (11.5-15.5) % Plt Count (140-440) K/uL Neut % (Auto) (42.0-72.0) % Lymph % (Auto) (20-44) % Gonzales % (Auto) (0.0-11.0) % Eos % (Auto) (0.0-7.0) % Baso % (Auto) (0.0-3.0) % Neut # (Auto) (1.7-7.0) K/uL Lymph # (Auto) (0.90-2.90) K/uL Gonzales # (Auto) (0.00-0.90) K/UL Eos # (Auto) (0.00-0.50) K/uL Baso # (Auto) (0.00-0.30) K/uL D-Dimer Quant (PE/DVT) (0.00-0.50) ug/ml Sodium (135-149) mmol/L Potassium (3.6-5.1) mmol/L Chloride (96-114) mmol/L Carbon Dioxide (20-32) mmol/L BUN (7-30) mg/dL Creatinine (0.5-1.5) mg/dL Estimated Creat Clear Estimated GFR ml/min Glucose (60-115) mg/dL Calcium (8.4-10.6) mg/dL Total Bilirubin 0.4 (0.1-1.5) mg/dL Direct Bilirubin 0.2 (0.0-0.5) mg/dL AST 25 (12-35) U/L ALT 31 (4-35) U/L Alkaline Phosphatase 56 (40-150) U/L Troponin I < 0.01 L (0.01-0.04) ng/mL C-Reactive Protein (0.5-1.0) mg/dL NT-Pro-B Natriuret Pep 751 pg/mL Total Protein 7.1 (6.0-8.3) g/dL Albumin 4.4 (3.3-5.0) g/dL Ethyl Alcohol < 0.01 L (0.01-0.03) % POC Troponin I 0.00 L (0.01-0.04) ng/ml ECG Data Attestation: I personally reviewed and interpreted this ECG as follows: (Normal sinus rate of 60) Discharge Plan Discharge Clinical Impression: Vertigo Patient Disposition: Home w/ Parent or Adult Condition: Improved Additional Instructions: Focus on hydration. Take care in transitions. Might benefit from taking meclizine, if not too sedating, regularly dosed 3 times a day over the next 4 - 5 days. Could also try the Valium. If however, symptoms, namely dizziness, just isn't changing with position or absence of movement, we should re-evaluate. Otherwise I would follow up in clinic if movement related dizziness continuing. Might benefit from physical therapy intervention. So return for much more intense symptoms, repeated vomiting(though this can certainly be present with peripheral vertigo), new and focal weakness, severe headache. Prescriptions: New meclizine 25 mg tablet 25 mg PO TID PRNQty: 15 0RF diazepam [Valium] 5 mg tablet 5 mg PO BID PRN (Reason: dizziness/nausea) Qty: 5 0RF No Action cholecalciferol (vitamin D3) 25 mcg (1,000 unit) capsule 1,000 unit PO DAILY Label Comments: Take 1 capsule by mouth once daily. oxcarbazepine 150 mg tablet 150 mg PO BID Label Comments: take 1 tablet by mouth in the morning and 2 tablets by mouth in the evening rosuvastatin 5 mg tablet 5 mg PO HS valacyclovir 500 mg tablet 500 mg PO DAILY Label Comments: Take 1 tablet by mouth 2 times daily. aspirin 81 mg capsule 81 mg PO DAILY lisinopril 5 mg tablet 2.5 mg PO DAILY metoprolol tartrate 50 mg tablet 50 mg PO Q12H Follow Up/Referrals: Sophie Louise MD [Primary Care Provider] - Stand Alone Forms: [employer] Info Instructions
[2022-11-09 23:19] LABS: Basophils Absolute Auto 0.03 K/uL (0.00-0.30); Basophils Percent Auto 0.4 % (0.0-3.0); Eosinophils Absolute Auto 0.13 K/uL (0.00-0.50); Eosinophils Percent Auto 1.9 % (0.0-7.0); Hematocrit 41.9 % (33.0-51.0); Immature Granulocytes Abs Auto 0.05 K/uL (0.00-0.30); Immature Granulocytes Pct Auto 0.7 %; Lymphocytes Absolute Auto 2.57 K/uL (0.90-2.90); Lymphocytes Percent Auto 36.8 % (20-44); Mean Corpuscular HGB Conc 33 gm/dL (32-36); Mean Corpuscular Hemoglobin 31 pg (26-34); Mean Corpuscular Volume 93 fL (80-100); Neutrophils Absolute Auto 3.43 K/uL (1.7-7.0); Neutrophils Percent Auto 49.2 % (42.0-72.0); Platelet Count* 309 K/uL (140-440); RDW Coefficient of Variation % 12.9 % (11.5-15.5); Red Blood Count 4.51 m/uL (4.00-5.20); White Blood Count* 6.98 K/uL (4.50-11.00)
[2022-11-09 23:21] LABS: Chloride* 106 mmol/L (96-114); Potassium* 3.4 mmol/L (3.6-5.1); Sodium* 139 mmol/L (135-149)
[2022-11-09 23:22] LABS: Albumin* 4.4 g/dL (3.3-5.0)
[2022-11-09 23:24] LABS: Blood Urea Nitrogen* 18 mg/dL (7-30); Carbon Dioxide* 27 mmol/L (20-32); Creatinine* 0.6 mg/dL (0.5-1.5); Est. Creatinine Clearance* 48.43; Estimated Glomerular Filt Rate 100 ml/min
[2022-11-09 23:25] LABS: Alkaline Phosphatase* 56 U/L (40-150); Aspartate Amino Transferase* 25 U/L (12-35); Bilirubin Direct* 0.2 mg/dL (0.0-0.5); Bilirubin Total* 0.4 mg/dL (0.1-1.5); Calcium* 9.5 mg/dL (8.4-10.6); Glucose* 111 mg/dL (60-115); Total Protein* 7.1 g/dL (6.0-8.3)
[2022-11-09 23:26] LABS: Alanine Aminotransferase* 31 U/L (4-35)
[2022-11-09 23:27] LABS: D Dimer Quantitative* 0.37 ug/ml (0.00-0.50)
[2022-11-09] MEDS: ONDANSETRON 2 MG/ML inj 4 MG IVP (23:28)
[2022-11-09 23:30] LABS: C Reactive Protein* < 0.5 mg/dL (0.5-1.0); Slide Review Reflex No
[2022-11-09 23:31] LABS: Ethanol* < 0.01 % (0.01-0.03)
[2022-11-09 23:39] LABS: NT Pro B Type NatriureticPept* 751 pg/mL; Troponin I* < 0.01 ng/mL (0.01-0.04)
[2022-11-10 00:02] VITALS: BP 144/80; PULSE 61; RESP 16; O2SAT 95
[2022-11-10 00:17] VITALS: BP 162/86; PULSE 63; RESP 16; O2SAT 96
[2022-11-10 00:32] VITALS: BP 165/65; PULSE 60; RESP 16; O2SAT 95
[2022-11-10 00:58] VITALS: BP 195/105; PULSE 74; RESP 16; TEMP 36.9
== END 2022-11-10 00:58 | disposition home or self-care (01) ==
PROVIDERS: Emergency Provider Family Medicine; PCP Family Medicine
DX: R42 Dizziness and giddiness (principal)
CPT/HCPCS: 36415; 80048; 80076; 82077; 83880; 84484; 85025; 85379; 86140; 93005; 94761; 96374; 96375; 99284; J2405; J3360; J7030